=== PATIENT | male | born 1945 | race Caucasian/White ===

== ENCOUNTER 2023-01-19 23:12 | Emergency (ER) | payer OTHER, SELFPAY ==
[2023-01-19 23:13] VITALS: BP 193/99; PULSE 92; RESP 15; TEMP 36.7; O2SAT 98; BMI 22.8
--- NOTE | 2023-01-19 23:43 | EX.ED.UPPERE ---
HPI History of Present Illness Chief Complaint: Laceration Informant: patient Narrative Narrative: Patient presents with laceration and bleeding the dorsum of his left hand. Patient was cutting material for food just a couple hours ago. Accidentally cut the dorsum of his left hand. He states is not that bad of a cut but it just keeps bleeding on him. He is on Plavix and aspirin. No other complaints or other areas of bleeding. He has no numbness tingling or weakness. No Coumadin, Xarelto, or Eliquis. PFSH PFSH Home Medications albuterol sulfate 90 mcg/actuation aerosol inhaler (ProAir HFA) 1 - 2 puff inhalation Q6H PRN PRN Sob &/Or Wheezing 03/09/17 [History Last Taken Unknown] budesonide-formoterol HFA 80 mcg-4.5 mcg/actuation aerosol inhaler (Symbicort) 2 puff inhalation BID PRN Sob &/Or Wheezing 03/09/17 [History Last Taken 03/09/17 12:00] aspirin 81 mg chewable tablet 81 mg PO DAILY@0800 03/11/17 [Rx Last Taken Unknown] diltiazem HCl 120 mg capsule,extended release 24 hr (Cardizem CD) 120 mg PO DAILY 01/20/23 [History Last Taken Unknown] Allergy/AdvReac Type Severity Reaction Status Date / Time No Known Allergies Allergy Verified 01/19/23 23:17 Social History Smoking Status: Former smoker ROS [facility] ED Gastrointestinal Gastrointestinal: Denies nausea or vomiting Integumentary Reports other Details: Laceration as in history of present illness. Neurologic Neurologic: Denies paresthesias or weakness Hematologic/Lymphatic Hematologic/Lymphatic: Reports easy bleeding and easy bruising Allergic/Immunologic Allergic/Immunologic ED: Denies urticaria EXAM Physical Exam Narrative Exam Narrative: Patient awake alert no acute distress. HEENT shows no trauma. Heart is regular. Lungs are clear bilaterally. This skin shows a laceration detailed in musculoskeletal exam. No pallor. No abnormal bruising noted on his body including bony prominences. Extremities show prior loss of his left index finger that evidently occurred in 1967. He has a laceration on the dorsum of his left hand. This is between the second and third ray distally overlying the distal aspect of the metacarpals. It is curvilinear about 2.5 cm. There is clot over it. The clot was removed. Right now it has minimal bleeding at all. Distally has normal sensation and range of motion. No visible tendon at this time. Const Vital Signs: 01/19/23 23:13 Temperature 98.1 F Temperature Source Temporal Pulse Rate 92 Respiratory Rate 15 Blood Pressure 193/99 H Blood Pressure Mean 130 Pulse Ox 98 Oxygen Delivery Method Room Air MDM MDM MDM Narrative Medical decision making narrative: See procedure note for laceration. We will place Surgifoam on this. I explained that this will ooze intermittently off and on for the next 1 to 3 days. Sutures should come out in 10 to 14 days. We discussed signs of infection reason to return. He can continue his anticoagulation because it will still have affected for 3 days anyway and the wound should be on its way to healing with good clot formation before that. Procedures Lacerations Dorsum left hand: Depth: Skin Shape: Flap Prep: Yina Laceration repair: Lidocaine with epi, Local, Skin sutures and Wound explored Irrigated (ml): 100 Number of Sutures/Sheri: 3 Suture Information: Ethilon and 4-0 Comment: The area was scrubbed and clean. No visible tendon. It was sutured without tension with 3 interrupted 4-0 Ethilon. This will allow some drainage from the areas. There is minimal ooze from the needle poke. Discharge Plan Triage Chief Complaint: Laceration ED Provider: Ryan Jackson Dx/Rx/DC Orders Clinical Impression: Sutured skin wound, Chronic anticoagulation, Laceration of hand, left Instructions: ED Laceration, Hand: All Closures Prescriptions: No Action albuterol sulfate [ProAir HFA] 1 PUFF inhaler 1 - 2 puff inhalation Q6H PRN PRN (Reason: Sob &/Or Wheezing) budesonide-formoterol [Symbicort] 1 INHALER inhaler 2 puff inhalation BID PRN (Reason: Sob &/Or Wheezing) aspirin 81 MG tablet,chewable 81 mg PO DAILY@0800 0RF diltiazem HCl [Cardizem CD] 120 mg capsule,extended release 24hr 120 mg PO DAILY Primary Care Provider: [facility] [facility] [Primary Care Provider] - 10-14 Days if not better Disposition Disposition: Home, Self Care
[2023-01-20] MEDS: Lidocaine/Epi/Tetracaine 50 ML 1 APPLIC TOPICAL (00:38)
[2023-01-20 01:58] VITALS: PULSE 61; RESP 16; O2SAT 99
[2023-01-20] MEDS: Gelatin Sponge Absorbable 50cm (1) 1 EACH TOPICAL (01:59)
[2023-01-20] MEDS: Lidocaine 1% /Epi 1:100 (20ml) 20 ML Vial INFILT (01:59)
== END 2023-01-20 01:59 | disposition home or self-care (01) ==
PROVIDERS: Emergency Provider Emergency Medicine; Visit Provider Emergency Medicine
DX: S61.412A Laceration without foreign body of left hand, initial encounter (principal); Z79.01 Long term (current) use of anticoagulants; Z87.891 Personal history of nicotine dependence; Z79.82 Long term (current) use of aspirin; X58.XXXA Exposure to other specified factors, initial encounter
CPT/HCPCS: 12001; 99283